=== PATIENT | female | born 1940 | race Caucasian/White ===

== ENCOUNTER 2019-11-09 10:47 | Inpatient (IN) ==
[2019-11-09] MEDS ORDERED: *HR* Dextrose 50 % in Water (Vial) 50 ML VIAL IVP PRN (11:07)
[2019-11-09] MEDS ORDERED: D5% in Water 1,000 ML IVC PRN (11:07)
[2019-11-09] MEDS ORDERED: Dextrose Gel 15 GM/37.5 ML TUBE PO PRN ×2 (11:07)
[2019-11-09] MEDS: Insulin LISPRO 300 UNITS/3 ML VIAL SQ SCH (18:05)
[2019-11-09] MEDS: Insulin NPH/REG 70/30 100 UNIT/ML (x5UNIT) SQ SCH (18:05)
[2019-11-09] MEDS: Melatonin 3 MG TABLET PO PRN (21:22)
[2019-11-10 07:10] LABS: Basophils % 0.1 %; Hematocrit 39.9 % (35.3-44.9); Hemoglobin 13.8 g/dL (11.5-15.4); Immature Granulocytes % 0.4 % (0-4); Lymphocytes # 1.7 K/mcL (0.6-4.6); Lymphocytes % 17.3 %; Mean Corpuscular HGB Conc 34.6 g/dL (31.6-35.5); Mean Corpuscular Hemoglobin 33.5 pg (28.0-33.3); Mean Corpuscular Volume 96.8 fL (83.0-100.0); Mean Platelet Volume 11.3 fL (9.4-12.4); Monocytes # 1.2 K/mcL (0.0-1.3); Monocytes % 12.3 %; Platelet Count 280 K/mcL (140-400); Red Blood Count 4.12 M/mcL (3.82-4.97); Red Cell Distribution Width 12.9 % (11.5-14.5); Segmented Neutrophils % 69.9 %
[2019-11-10 07:26] LABS: BUN/Creatinine Ratio 33 (6-26); Blood Urea Nitrogen 17 mg/dL (8-23); Carbon Dioxide 28 mEq/L (23-29); Chloride 102 mEq/L (98-107); Glucose 158 mg/dL (70-105); Osmolality,Calculated 297 (280-300); Potassium 3.1 mEq/L (3.5-5.1); Sodium 141 mEq/L (136-145); eGFR For African Americans > 60 (> 60); eGFR For Non-African Americans > 60 (> 60)
[2019-11-10] MEDS: *HR* Metformin 500 MG TABLET PO SCH (08:20)
[2019-11-10] MEDS: Aspirin 81 MG TAB.CHEW PO SCH (08:21)
[2019-11-10] MEDS: Insulin NPH/REG 70/30 100 UNIT/ML (x5UNIT) SQ SCH (08:21)
[2019-11-10] MEDS: Venlafaxine XR (24 HR) 37.5 MG CAP.ER.24H PO SCH (08:21)
[2019-11-10] MEDS: amLODIPine 5 MG TABLET PO SCH (08:21)
[2019-11-10] MEDS: *HR* Glimepiride 2 MG TABLET PO SCH (08:21)
[2019-11-10] MEDS: Insulin LISPRO 300 UNITS/3 ML VIAL SQ SCH ×3 (08:22→16:28)
[2019-11-10 08:57] LABS: Estimated Average Glucose 249 mg/dl
[2019-11-10] MEDS: Insulin DETEMIR 100 UNIT/ML X5UNITS SQ SCH (20:31)
[2019-11-11] MEDS: *HR* Metformin 500 MG TABLET PO SCH (08:21)
[2019-11-11] MEDS: amLODIPine 5 MG TABLET PO SCH (08:21)
[2019-11-11] MEDS: Aspirin 81 MG TAB.CHEW PO SCH (08:22)
[2019-11-11] MEDS: Venlafaxine XR (24 HR) 37.5 MG CAP.ER.24H PO SCH (08:22)
[2019-11-11] MEDS: *HR* Glimepiride 2 MG TABLET PO SCH (08:22)
[2019-11-11] MEDS: polyethylene glycoL 3350 17 GM POWD.PACK PO PRN (08:22)
[2019-11-11] MEDS: Insulin DETEMIR 100 UNIT/ML X5UNITS SQ SCH ×2 (08:22→20:47)
[2019-11-11] MEDS: Insulin LISPRO 300 UNITS/3 ML VIAL SQ SCH ×3 (08:27→16:39)
[2019-11-12] MEDS: Melatonin 3 MG TABLET PO PRN ×2 (00:18→22:09)
[2019-11-12] MEDS: *HR* Metformin 500 MG TABLET PO SCH (09:12)
[2019-11-12] MEDS: Aspirin 81 MG TAB.CHEW PO SCH (09:13)
[2019-11-12] MEDS: Venlafaxine XR (24 HR) 37.5 MG CAP.ER.24H PO SCH (09:13)
[2019-11-12] MEDS: Insulin DETEMIR 100 UNIT/ML X5UNITS SQ SCH ×2 (09:13→22:09)
[2019-11-12] MEDS: amLODIPine 5 MG TABLET PO SCH (09:13)
[2019-11-12] MEDS: *HR* Glimepiride 2 MG TABLET PO SCH (09:13)
[2019-11-12 10:06] LABS: Hematocrit 38.7 % (35.3-44.9); Mean Corpuscular HGB Conc 33.6 g/dL (31.6-35.5); Mean Corpuscular Hemoglobin 33.4 pg (28.0-33.3); Mean Corpuscular Volume 99.5 fL (83.0-100.0); Mean Platelet Volume 11.3 fL (9.4-12.4); Platelet Count 295 K/mcL (140-400); Red Blood Count 3.89 M/mcL (3.82-4.97); Red Cell Distribution Width 13.1 % (11.5-14.5); White Blood Count 11.4 K/mcL (4.3-11.1)
[2019-11-12] MEDS: Insulin LISPRO 300 UNITS/3 ML VIAL SQ SCH ×3 (10:53→16:34)
[2019-11-12 11:07] LABS: BUN/Creatinine Ratio 35 (6-26); Blood Urea Nitrogen 24 mg/dL (8-23); Calcium 8.6 mg/dL (8.6-10.3); Carbon Dioxide 29 mEq/L (23-29); Chloride 95 mEq/L (98-107); Glucose 551 mg/dL (70-105); Osmolality,Calculated 305 (280-300); Potassium 4.3 mEq/L (3.5-5.1); Sodium 133 mEq/L (136-145); eGFR For African Americans > 60 (> 60); eGFR For Non-African Americans > 60 (> 60)
[2019-11-12] MEDS: rOPINIRole 0.25 MG TABLET PO SCH (22:12)
[2019-11-13] MEDS: Insulin LISPRO 300 UNITS/3 ML VIAL SQ SCH ×3 (08:25→16:59)
[2019-11-13] MEDS: *HR* Metformin 500 MG TABLET PO SCH (08:25)
[2019-11-13] MEDS: Aspirin 81 MG TAB.CHEW PO SCH (08:26)
[2019-11-13] MEDS: Venlafaxine XR (24 HR) 37.5 MG CAP.ER.24H PO SCH (08:26)
[2019-11-13] MEDS: amLODIPine 5 MG TABLET PO SCH (08:26)
[2019-11-13] MEDS: *HR* Glimepiride 2 MG TABLET PO SCH (08:26)
[2019-11-13] MEDS: Insulin DETEMIR 100 UNIT/ML X5UNITS SQ SCH ×2 (08:26→20:50)
[2019-11-13 11:48] LABS: Hematocrit 35.8 % (35.3-44.9); Hemoglobin 12.1 g/dL (11.5-15.4); Mean Corpuscular HGB Conc 33.8 g/dL (31.6-35.5); Mean Corpuscular Hemoglobin 33.5 pg (28.0-33.3); Mean Corpuscular Volume 99.2 fL (83.0-100.0); Mean Platelet Volume 11.1 fL (9.4-12.4); Platelet Count 268 K/mcL (140-400); Red Blood Count 3.61 M/mcL (3.82-4.97); Red Cell Distribution Width 13.1 % (11.5-14.5); White Blood Count 11.8 K/mcL (4.3-11.1)
[2019-11-13 12:06] LABS: BUN/Creatinine Ratio 45 (6-26); Blood Urea Nitrogen 28 mg/dL (8-23); Calcium 8.4 mg/dL (8.6-10.3); Carbon Dioxide 28 mEq/L (23-29); Chloride 99 mEq/L (98-107); Glucose 336 mg/dL (70-105); Osmolality,Calculated 299 (280-300); Potassium 4.1 mEq/L (3.5-5.1); Sodium 135 mEq/L (136-145); eGFR For African Americans > 60 (> 60); eGFR For Non-African Americans > 60 (> 60)
[2019-11-13] MEDS: rOPINIRole 0.25 MG TABLET PO SCH (20:51)
[2019-11-13] MEDS: Melatonin 3 MG TABLET PO PRN (20:54)
[2019-11-14] MEDS: Insulin LISPRO 300 UNITS/3 ML VIAL SQ SCH ×3 (08:43→16:37)
[2019-11-14] MEDS: *HR* Glimepiride 2 MG TABLET PO SCH (08:44)
[2019-11-14] MEDS: Aspirin 81 MG TAB.CHEW PO SCH (08:44)
[2019-11-14] MEDS: Venlafaxine XR (24 HR) 37.5 MG CAP.ER.24H PO SCH (08:44)
[2019-11-14] MEDS: amLODIPine 5 MG TABLET PO SCH (08:44)
[2019-11-14] MEDS: Insulin DETEMIR 100 UNIT/ML X5UNITS SQ SCH ×2 (08:44→20:13)
[2019-11-14] MEDS: *HR* Metformin 500 MG TABLET PO SCH (08:44)
[2019-11-14] MEDS: Acetaminophen 325 MG TABLET PO PRN (20:12)
[2019-11-14] MEDS: Melatonin 3 MG TABLET PO PRN (22:49)
[2019-11-15] MEDS: Insulin LISPRO 300 UNITS/3 ML VIAL SQ SCH ×3 (07:55→16:53)
[2019-11-15] MEDS: *HR* Metformin 500 MG TABLET PO SCH (08:15)
[2019-11-15] MEDS: Venlafaxine XR (24 HR) 37.5 MG CAP.ER.24H PO SCH (08:15)
[2019-11-15] MEDS: *HR* Glimepiride 2 MG TABLET PO SCH (08:16)
[2019-11-15] MEDS: Aspirin 81 MG TAB.CHEW PO SCH (08:16)
[2019-11-15] MEDS: amLODIPine 5 MG TABLET PO SCH (08:16)
[2019-11-15] MEDS: Acetaminophen 325 MG TABLET PO PRN (08:22)
[2019-11-15] MEDS: Insulin DETEMIR 100 UNIT/ML X5UNITS SQ SCH ×2 (08:30→22:53)
[2019-11-15 11:17] LABS: Hemoglobin 11.6 g/dL (11.5-15.4); Mean Corpuscular HGB Conc 34.1 g/dL (31.6-35.5); Mean Corpuscular Hemoglobin 33.9 pg (28.0-33.3); Mean Corpuscular Volume 99.4 fL (83.0-100.0); Mean Platelet Volume 10.9 fL (9.4-12.4); Platelet Count 290 K/mcL (140-400); Red Blood Count 3.42 M/mcL (3.82-4.97); Red Cell Distribution Width 13.2 % (11.5-14.5); White Blood Count 11.4 K/mcL (4.3-11.1)
[2019-11-15 11:29] LABS: BUN/Creatinine Ratio 40 (6-26); Blood Urea Nitrogen 25 mg/dL (8-23); Carbon Dioxide 27 mEq/L (23-29); Chloride 98 mEq/L (98-107); Glucose 450 mg/dL (70-105); Osmolality,Calculated 302 (280-300); Potassium 4.1 mEq/L (3.5-5.1); Sodium 134 mEq/L (136-145); eGFR For African Americans > 60 (> 60); eGFR For Non-African Americans > 60 (> 60)
[2019-11-15] MEDS ORDERED: *HR* Metformin 500 MG TABLET PO SCH (17:00)
[2019-11-15 18:45] LABS: Bilirubin,Urine Negative (Negative); Blood,Urine Large (Negative); Color,Urine Yellow (Yellow); Glucose,Urine (UA) 500 mg/dL (Normal); Ketones,Urine Trace mg/dL (Negative); Leukocyte Esterase,Urine Negative (Negative); Nitrite,Urine Negative (Negative); Protein,Urine 100 mg/dL (Neg-Trace); Urobilinogen,Urine Normal (Normal)
[2019-11-15 18:51] LABS: Clarity,Urine Cloudy (Clear)
[2019-11-15 18:53] LABS: Bacteria,Urine Few per hpf (None-Few); RBC,Urine TNTC per hpf (0-3); Squamous Epithelial Cell,Urine Few per lpf (None-Few); Yeast,Urine Moderate per hpf (None Seen)
[2019-11-15] MEDS: rOPINIRole 0.25 MG TABLET PO SCH (22:45)
[2019-11-15] MEDS: Melatonin 3 MG TABLET PO PRN (22:45)
[2019-11-16] MEDS: Venlafaxine XR (24 HR) 37.5 MG CAP.ER.24H PO SCH (09:14)
[2019-11-16] MEDS: *HR* Metformin 500 MG TABLET PO SCH (09:15)
[2019-11-16] MEDS: amLODIPine 5 MG TABLET PO SCH (09:15)
[2019-11-16] MEDS: Insulin DETEMIR 100 UNIT/ML X5UNITS SQ SCH ×2 (09:16→22:06)
[2019-11-16] MEDS: Insulin LISPRO 300 UNITS/3 ML VIAL SQ SCH ×3 (09:16→16:27)
[2019-11-16] MEDS: *HR* Glimepiride 2 MG TABLET PO SCH (09:17)
[2019-11-16] MEDS: Aspirin 81 MG TAB.CHEW PO SCH (09:22)
[2019-11-16 11:18] LABS: Hematocrit 35.5 % (35.3-44.9); Hemoglobin 12.3 g/dL (11.5-15.4); Mean Corpuscular HGB Conc 34.6 g/dL (31.6-35.5); Mean Corpuscular Hemoglobin 33.9 pg (28.0-33.3); Mean Corpuscular Volume 97.8 fL (83.0-100.0); Mean Platelet Volume 10.7 fL (9.4-12.4); Platelet Count 342 K/mcL (140-400); Red Blood Count 3.63 M/mcL (3.82-4.97); White Blood Count 10.7 K/mcL (4.3-11.1)
[2019-11-16 11:32] LABS: BUN/Creatinine Ratio 31 (6-26); Blood Urea Nitrogen 23 mg/dL (8-23); Calcium 8.4 mg/dL (8.6-10.3); Carbon Dioxide 29 mEq/L (23-29); Chloride 98 mEq/L (98-107); Glucose 278 mg/dL (70-105); Osmolality,Calculated 292 (280-300); Sodium 134 mEq/L (136-145); eGFR For African Americans > 60 (> 60); eGFR For Non-African Americans > 60 (> 60)
[2019-11-16] MEDS: Acetaminophen 325 MG TABLET PO PRN (12:05)
[2019-11-16] MEDS: rOPINIRole 0.25 MG TABLET PO SCH (22:01)
[2019-11-16] MEDS: Melatonin 3 MG TABLET PO PRN (22:01)
[2019-11-17] MEDS: Acetaminophen 325 MG TABLET PO PRN ×2 (00:11→23:25)
[2019-11-17] MEDS: *HR* Glimepiride 2 MG TABLET PO SCH (08:44)
[2019-11-17] MEDS: Insulin LISPRO 300 UNITS/3 ML VIAL SQ SCH ×3 (08:44→16:39)
[2019-11-17] MEDS: Venlafaxine XR (24 HR) 37.5 MG CAP.ER.24H PO SCH (08:44)
[2019-11-17] MEDS: amLODIPine 5 MG TABLET PO SCH (08:44)
[2019-11-17] MEDS: *HR* Metformin 500 MG TABLET PO SCH (08:44)
[2019-11-17] MEDS: Insulin DETEMIR 100 UNIT/ML X5UNITS SQ SCH ×2 (08:45→20:15)
[2019-11-17] MEDS: Aspirin 81 MG TAB.CHEW PO SCH (08:45)
[2019-11-17] MEDS: polyethylene glycoL 3350 17 GM POWD.PACK PO PRN (20:15)
[2019-11-17] MEDS: rOPINIRole 0.25 MG TABLET PO SCH (20:15)
[2019-11-17] MEDS: Melatonin 3 MG TABLET PO PRN (23:25)
[2019-11-18] MEDS: Insulin LISPRO 300 UNITS/3 ML VIAL SQ SCH ×3 (07:51→17:23)
[2019-11-18] MEDS: Aspirin 81 MG TAB.CHEW PO SCH (08:01)
[2019-11-18] MEDS: amLODIPine 5 MG TABLET PO SCH (08:01)
[2019-11-18] MEDS: Venlafaxine XR (24 HR) 37.5 MG CAP.ER.24H PO SCH (08:01)
[2019-11-18] MEDS: *HR* Metformin 500 MG TABLET PO SCH (08:01)
[2019-11-18] MEDS: *HR* Glimepiride 2 MG TABLET PO SCH (08:02)
[2019-11-18] MEDS: polyethylene glycoL 3350 17 GM POWD.PACK PO PRN (08:03)
[2019-11-18] MEDS: Insulin DETEMIR 100 UNIT/ML X5UNITS SQ SCH ×2 (08:08→21:00)
[2019-11-18] MEDS: rOPINIRole 0.25 MG TABLET PO SCH (21:00)
[2019-11-18] MEDS: Acetaminophen 325 MG TABLET PO PRN (23:47)
[2019-11-18] MEDS: Melatonin 3 MG TABLET PO PRN (23:48)
[2019-11-19] MEDS: *HR* Metformin 500 MG TABLET PO SCH (08:05)
[2019-11-19] MEDS: amLODIPine 5 MG TABLET PO SCH (08:06)
[2019-11-19] MEDS: Aspirin 81 MG TAB.CHEW PO SCH (08:06)
[2019-11-19] MEDS: Venlafaxine XR (24 HR) 37.5 MG CAP.ER.24H PO SCH (08:06)
[2019-11-19] MEDS: *HR* Glimepiride 2 MG TABLET PO SCH (08:07)
[2019-11-19] MEDS: Insulin LISPRO 300 UNITS/3 ML VIAL SQ SCH ×3 (08:12→16:43)
[2019-11-19] MEDS: Insulin DETEMIR 100 UNIT/ML X5UNITS SQ SCH ×2 (08:50→21:01)
[2019-11-19] MEDS: cefTRIAXone 1,000 MG in 0.9 % Sodium Chloride Mini Bag 100 ML IVPB SCH (11:15)
[2019-11-19] MEDS: polyethylene glycoL 3350 17 GM POWD.PACK PO PRN (12:14)
[2019-11-19] MEDS: Acetaminophen 325 MG TABLET PO PRN ×2 (15:06→22:34)
[2019-11-19] MEDS: rOPINIRole 0.25 MG TABLET PO SCH (21:01)
[2019-11-19] MEDS: Melatonin 3 MG TABLET PO PRN (22:29)
[2019-11-20] MEDS: Venlafaxine XR (24 HR) 37.5 MG CAP.ER.24H PO SCH (08:55)
[2019-11-20] MEDS: Aspirin 81 MG TAB.CHEW PO SCH (08:55)
[2019-11-20] MEDS: *HR* Glimepiride 2 MG TABLET PO SCH (08:56)
[2019-11-20] MEDS: *HR* Metformin 500 MG TABLET PO SCH (08:56)
[2019-11-20] MEDS: amLODIPine 5 MG TABLET PO SCH (08:56)
[2019-11-20] MEDS: Insulin LISPRO 300 UNITS/3 ML VIAL SQ SCH ×3 (08:57→16:34)
[2019-11-20] MEDS: cefTRIAXone 1,000 MG in 0.9 % Sodium Chloride Mini Bag 100 ML IVPB SCH (08:58)
[2019-11-20] MEDS: Insulin DETEMIR 100 UNIT/ML X5UNITS SQ SCH ×2 (09:05→21:51)
[2019-11-20] MEDS ORDERED: Bisacodyl 10 MG RECTAL SUPPOSITORY RC PRN (10:57)
[2019-11-20] MEDS: Sennosides 8.6 MG TABLET PO SCH (11:51)
[2019-11-20] MEDS: Acetaminophen 325 MG TABLET PO PRN (14:48)
[2019-11-20] MEDS: rOPINIRole 0.25 MG TABLET PO SCH (21:47)
[2019-11-20] MEDS: Melatonin 3 MG TABLET PO PRN (21:48)
[2019-11-21] MEDS: polyethylene glycoL 3350 17 GM POWD.PACK PO PRN (08:42)
[2019-11-21] MEDS: Sennosides 8.6 MG TABLET PO SCH (08:45)
[2019-11-21] MEDS: Venlafaxine XR (24 HR) 37.5 MG CAP.ER.24H PO SCH (08:46)
[2019-11-21] MEDS: *HR* Glimepiride 2 MG TABLET PO SCH (08:46)
[2019-11-21] MEDS: amLODIPine 5 MG TABLET PO SCH (08:46)
[2019-11-21] MEDS: cefTRIAXone 1,000 MG in 0.9 % Sodium Chloride Mini Bag 100 ML IVPB SCH (08:47)
[2019-11-21] MEDS: *HR* Metformin 500 MG TABLET PO SCH (08:47)
[2019-11-21] MEDS: Aspirin 81 MG TAB.CHEW PO SCH (08:47)
[2019-11-21] MEDS: Insulin DETEMIR 100 UNIT/ML X5UNITS SQ SCH (08:49)
[2019-11-21] MEDS: Insulin LISPRO 300 UNITS/3 ML VIAL SQ SCH ×3 (08:50→16:41)
[2019-11-21] MEDS ORDERED: Lactulose Oral Soln 20 GM/30 ML UDC PO ONE (17:15)
[2019-11-21] MEDS ORDERED: Sennosides/Docusate Sodium TABLET PO STA (17:16)
[2019-11-21] MEDS: polyethylene glycoL 3350 17 GM POWD.PACK PO SCH (18:05)
[2019-11-21] MEDS: rOPINIRole 0.25 MG TABLET PO SCH (21:51)
[2019-11-21] MEDS: Melatonin 3 MG TABLET PO PRN (21:51)
[2019-11-22] MEDS: Acetaminophen 325 MG TABLET PO PRN ×3 (00:17→22:23)
[2019-11-22] MEDS: *HR* Metformin 500 MG TABLET PO SCH (08:11)
[2019-11-22] MEDS: Insulin LISPRO 300 UNITS/3 ML VIAL SQ SCH ×3 (08:11→16:48)
[2019-11-22] MEDS: Venlafaxine XR (24 HR) 37.5 MG CAP.ER.24H PO SCH (08:11)
[2019-11-22] MEDS: Aspirin 81 MG TAB.CHEW PO SCH (08:11)
[2019-11-22] MEDS: *HR* Glimepiride 2 MG TABLET PO SCH (08:11)
[2019-11-22] MEDS: amLODIPine 5 MG TABLET PO SCH (08:11)
[2019-11-22] MEDS: cefTRIAXone 1,000 MG in 0.9 % Sodium Chloride Mini Bag 100 ML IVPB SCH (08:31)
[2019-11-22] MEDS: polyethylene glycoL 3350 17 GM POWD.PACK PO SCH (08:31)
[2019-11-22] MEDS: Insulin DETEMIR 100 UNIT/ML X5UNITS SQ SCH (08:31)
[2019-11-22] MEDS: Sennosides 8.6 MG TABLET PO SCH (08:32)
[2019-11-22 10:03] LABS: Hematocrit 38.3 % (35.3-44.9); Hemoglobin 12.9 g/dL (11.5-15.4); Mean Corpuscular HGB Conc 33.7 g/dL (31.6-35.5); Mean Corpuscular Hemoglobin 33.9 pg (28.0-33.3); Mean Corpuscular Volume 100.5 fL (83.0-100.0); Platelet Count 438 K/mcL (140-400); Red Blood Count 3.81 M/mcL (3.82-4.97); Red Cell Distribution Width 13.3 % (11.5-14.5); White Blood Count 10.8 K/mcL (4.3-11.1)
[2019-11-22 10:16] LABS: BUN/Creatinine Ratio 35 (6-26); Blood Urea Nitrogen 26 mg/dL (8-23); Calcium 8.4 mg/dL (8.6-10.3); Carbon Dioxide 24 mEq/L (23-29); Chloride 94 mEq/L (98-107); Glucose 457 mg/dL (70-105); Osmolality,Calculated 299 (280-300); Potassium 4.2 mEq/L (3.5-5.1); Sodium 132 mEq/L (136-145); eGFR For African Americans > 60 (> 60); eGFR For Non-African Americans > 60 (> 60)
[2019-11-22] MEDS: Fluconazole 100 MG TABLET PO SCH (16:47)
[2019-11-22] MEDS: rOPINIRole 1 MG TABLET PO SCH (20:42)
[2019-11-22] MEDS ORDERED: Mirtazapine 15 MG TABLET PO SCH (21:00)
[2019-11-22] MEDS: Melatonin 3 MG TABLET PO PRN (22:20)
[2019-11-23] MEDS: Aspirin 81 MG TAB.CHEW PO SCH (08:25)
[2019-11-23] MEDS: Sennosides 8.6 MG TABLET PO SCH (08:25)
[2019-11-23] MEDS: *HR* Metformin 500 MG TABLET PO SCH (08:25)
[2019-11-23] MEDS: polyethylene glycoL 3350 17 GM POWD.PACK PO SCH (08:25)
[2019-11-23] MEDS: Venlafaxine XR (24 HR) 37.5 MG CAP.ER.24H PO SCH (08:25)
[2019-11-23] MEDS: amLODIPine 5 MG TABLET PO SCH (08:25)
[2019-11-23] MEDS: *HR* Glimepiride 2 MG TABLET PO SCH (08:25)
[2019-11-23] MEDS: cefTRIAXone 1,000 MG in 0.9 % Sodium Chloride Mini Bag 100 ML IVPB SCH (08:26)
[2019-11-23] MEDS: Fluconazole 100 MG TABLET PO SCH (08:26)
[2019-11-23] MEDS: Insulin DETEMIR 100 UNIT/ML X5UNITS SQ SCH (08:27)
[2019-11-23] MEDS: Insulin LISPRO 300 UNITS/3 ML VIAL SQ SCH ×3 (08:27→16:42)
[2019-11-23] MEDS ORDERED: Insulin DETEMIR 100 UNIT/ML X5UNITS SQ SCH (09:00)
[2019-11-23] MEDS: Mirtazapine 15 MG TABLET PO SCH (21:36)
[2019-11-23] MEDS: Acetaminophen 325 MG TABLET PO PRN (21:36)
[2019-11-23] MEDS: rOPINIRole 1 MG TABLET PO SCH (23:15)
[2019-11-23] MEDS: Melatonin 3 MG TABLET PO PRN (23:15)
[2019-11-24] MEDS: Sennosides 8.6 MG TABLET PO SCH (08:19)
[2019-11-24] MEDS: *HR* Metformin 500 MG TABLET PO SCH (08:19)
[2019-11-24] MEDS: amLODIPine 5 MG TABLET PO SCH (08:20)
[2019-11-24] MEDS: Fluconazole 100 MG TABLET PO SCH (08:23)
[2019-11-24] MEDS: Aspirin 81 MG TAB.CHEW PO SCH (08:23)
[2019-11-24] MEDS: Venlafaxine XR (24 HR) 37.5 MG CAP.ER.24H PO SCH (08:23)
[2019-11-24] MEDS: *HR* Glimepiride 2 MG TABLET PO SCH (08:23)
[2019-11-24] MEDS: polyethylene glycoL 3350 17 GM POWD.PACK PO SCH (08:24)
[2019-11-24] MEDS: Insulin DETEMIR 100 UNIT/ML X5UNITS SQ SCH (08:25)
[2019-11-24] MEDS: Insulin LISPRO 300 UNITS/3 ML VIAL SQ SCH ×3 (08:26→16:52)
[2019-11-24] MEDS: Cefdinir 300 MG CAPSULE PO SCH (20:17)
[2019-11-24] MEDS: Mirtazapine 15 MG TABLET PO SCH (20:18)
[2019-11-24] MEDS: Melatonin 3 MG TABLET PO PRN (22:31)
[2019-11-24] MEDS: rOPINIRole 1 MG TABLET PO SCH (22:31)
[2019-11-24] MEDS: Acetaminophen 325 MG TABLET PO PRN (22:32)
[2019-11-25] MEDS: *HR* Glimepiride 2 MG TABLET PO SCH (08:36)
[2019-11-25] MEDS: *HR* Metformin 500 MG TABLET PO SCH (08:37)
[2019-11-25] MEDS: Aspirin 81 MG TAB.CHEW PO SCH (08:38)
[2019-11-25] MEDS: Fluconazole 100 MG TABLET PO SCH (08:40)
[2019-11-25] MEDS: Venlafaxine XR (24 HR) 37.5 MG CAP.ER.24H PO SCH (08:41)
[2019-11-25] MEDS: polyethylene glycoL 3350 17 GM POWD.PACK PO SCH (08:44)
[2019-11-25] MEDS: Insulin DETEMIR 100 UNIT/ML X5UNITS SQ SCH (08:44)
[2019-11-25] MEDS: amLODIPine 5 MG TABLET PO SCH (08:45)
[2019-11-25] MEDS: Cefdinir 300 MG CAPSULE PO SCH ×2 (08:47→21:37)
[2019-11-25] MEDS: Sennosides 8.6 MG TABLET PO SCH (08:48)
[2019-11-25] MEDS: Insulin LISPRO 300 UNITS/3 ML VIAL SQ SCH ×3 (08:50→16:56)
[2019-11-25] MEDS: Acetaminophen 325 MG TABLET PO PRN (22:55)
[2019-11-25] MEDS: Mirtazapine 15 MG TABLET PO SCH (22:57)
[2019-11-25] MEDS: Melatonin 3 MG TABLET PO PRN (22:58)
[2019-11-25] MEDS: rOPINIRole 1 MG TABLET PO SCH (22:58)
[2019-11-26] MEDS: Venlafaxine XR (24 HR) 37.5 MG CAP.ER.24H PO SCH (07:51)
[2019-11-26] MEDS: *HR* Glimepiride 2 MG TABLET PO SCH (07:52)
[2019-11-26] MEDS: *HR* Metformin 500 MG TABLET PO SCH ×2 (07:52→16:55)
[2019-11-26] MEDS: amLODIPine 5 MG TABLET PO SCH (07:52)
[2019-11-26] MEDS: polyethylene glycoL 3350 17 GM POWD.PACK PO SCH (07:56)
[2019-11-26] MEDS: Insulin LISPRO 300 UNITS/3 ML VIAL SQ SCH ×3 (08:07→16:36)
[2019-11-26] MEDS: Insulin DETEMIR 100 UNIT/ML X5UNITS SQ SCH (08:11)
[2019-11-26] MEDS: Aspirin 81 MG TAB.CHEW PO SCH (09:14)
[2019-11-26] MEDS: Fluconazole 100 MG TABLET PO SCH (09:14)
[2019-11-26] MEDS: Sennosides 8.6 MG TABLET PO SCH (09:15)
[2019-11-26] MEDS: rOPINIRole 1 MG TABLET PO SCH (20:50)
[2019-11-26] MEDS: Mirtazapine 15 MG TABLET PO SCH (20:50)
[2019-11-26] MEDS ORDERED: Insulin DETEMIR 100 UNIT/ML X5UNITS SQ SCH (21:00)
[2019-11-26] MEDS: Acetaminophen 325 MG TABLET PO PRN (23:05)
[2019-11-26] MEDS: Melatonin 3 MG TABLET PO PRN (23:06)
[2019-11-27] MEDS: Insulin LISPRO 300 UNITS/3 ML VIAL SQ SCH ×3 (07:48→16:24)
[2019-11-27] MEDS: Aspirin 81 MG TAB.CHEW PO SCH (08:58)
[2019-11-27] MEDS: *HR* Metformin 500 MG TABLET PO SCH ×2 (08:59→16:31)
[2019-11-27] MEDS: Fluconazole 100 MG TABLET PO SCH (08:59)
[2019-11-27] MEDS: Venlafaxine XR (24 HR) 37.5 MG CAP.ER.24H PO SCH (08:59)
[2019-11-27] MEDS: amLODIPine 5 MG TABLET PO SCH (08:59)
[2019-11-27] MEDS: *HR* Glimepiride 2 MG TABLET PO SCH (08:59)
[2019-11-27] MEDS: Sennosides 8.6 MG TABLET PO SCH (08:59)
[2019-11-27] MEDS: polyethylene glycoL 3350 17 GM POWD.PACK PO SCH (09:07)
[2019-11-27] MEDS: Insulin DETEMIR 100 UNIT/ML X5UNITS SQ SCH ×2 (10:31→20:45)
[2019-11-27] MEDS: Mirtazapine 15 MG TABLET PO SCH (20:44)
[2019-11-27] MEDS: rOPINIRole 1 MG TABLET PO SCH (20:45)
[2019-11-27] MEDS: Melatonin 3 MG TABLET PO PRN (23:13)
[2019-11-27] MEDS: Acetaminophen 325 MG TABLET PO PRN (23:14)
[2019-11-28] MEDS: Insulin LISPRO 300 UNITS/3 ML VIAL SQ SCH ×3 (08:34→16:39)
[2019-11-28] MEDS: Venlafaxine XR (24 HR) 37.5 MG CAP.ER.24H PO SCH (08:53)
[2019-11-28] MEDS: Sennosides 8.6 MG TABLET PO SCH (08:53)
[2019-11-28] MEDS: *HR* Glimepiride 2 MG TABLET PO SCH (08:53)
[2019-11-28] MEDS: amLODIPine 5 MG TABLET PO SCH (08:53)
[2019-11-28] MEDS: Fluconazole 100 MG TABLET PO SCH (08:53)
[2019-11-28] MEDS: *HR* Metformin 500 MG TABLET PO SCH ×2 (08:53→16:43)
[2019-11-28] MEDS: Aspirin 81 MG TAB.CHEW PO SCH (08:54)
[2019-11-28] MEDS: polyethylene glycoL 3350 17 GM POWD.PACK PO SCH (08:54)
[2019-11-28] MEDS: Insulin DETEMIR 100 UNIT/ML X5UNITS SQ SCH ×2 (08:54→21:34)
[2019-11-28] MEDS ORDERED: Insulin LISPRO 300 UNITS/3 ML VIAL SQ SCH (17:00)
[2019-11-28] MEDS: Mirtazapine 15 MG TABLET PO SCH (21:33)
[2019-11-28] MEDS: Acetaminophen 325 MG TABLET PO PRN (22:43)
[2019-11-28] MEDS: Melatonin 3 MG TABLET PO PRN (22:44)
[2019-11-28] MEDS: rOPINIRole 1 MG TABLET PO SCH (22:44)
[2019-11-29 06:53] LABS: Hematocrit 33.9 % (35.3-44.9); Hemoglobin 11.4 g/dL (11.5-15.4); Mean Corpuscular HGB Conc 33.6 g/dL (31.6-35.5); Mean Corpuscular Hemoglobin 34.1 pg (28.0-33.3); Mean Corpuscular Volume 101.5 fL (83.0-100.0); Mean Platelet Volume 9.7 fL (9.4-12.4); Platelet Count 428 K/mcL (140-400); Red Blood Count 3.34 M/mcL (3.82-4.97); Red Cell Distribution Width 13.3 % (11.5-14.5); White Blood Count 6.9 K/mcL (4.3-11.1)
[2019-11-29 07:20] LABS: BUN/Creatinine Ratio 57 (6-26); Blood Urea Nitrogen 30 mg/dL (8-23); Calcium 8.4 mg/dL (8.6-10.3); Carbon Dioxide 27 mEq/L (23-29); Chloride 98 mEq/L (98-107); Glucose 287 mg/dL (70-105); Osmolality,Calculated 297 (280-300); Potassium 4.3 mEq/L (3.5-5.1); Sodium 135 mEq/L (136-145); eGFR For African Americans > 60 (> 60); eGFR For Non-African Americans > 60 (> 60)
[2019-11-29] MEDS: Fluconazole 100 MG TABLET PO SCH (08:20)
[2019-11-29] MEDS: *HR* Glimepiride 2 MG TABLET PO SCH (08:20)
[2019-11-29] MEDS: Venlafaxine XR (24 HR) 37.5 MG CAP.ER.24H PO SCH (08:21)
[2019-11-29] MEDS: *HR* Metformin 500 MG TABLET PO SCH ×2 (08:21→16:53)
[2019-11-29] MEDS: amLODIPine 5 MG TABLET PO SCH (08:21)
[2019-11-29] MEDS: Sennosides 8.6 MG TABLET PO SCH (08:22)
[2019-11-29] MEDS: Insulin LISPRO 300 UNITS/3 ML VIAL SQ SCH ×3 (08:22→16:54)
[2019-11-29] MEDS: polyethylene glycoL 3350 17 GM POWD.PACK PO SCH (08:22)
[2019-11-29] MEDS: Insulin DETEMIR 100 UNIT/ML X5UNITS SQ SCH ×2 (08:22→22:40)
[2019-11-29] MEDS: Aspirin 81 MG TAB.CHEW PO SCH (08:22)
[2019-11-29] MEDS: Melatonin 3 MG TABLET PO PRN (22:35)
[2019-11-29] MEDS: Acetaminophen 325 MG TABLET PO PRN (22:35)
[2019-11-29] MEDS: rOPINIRole 1 MG TABLET PO SCH (22:35)
[2019-11-29] MEDS: Mirtazapine 15 MG TABLET PO SCH (22:36)
[2019-11-30] MEDS: polyethylene glycoL 3350 17 GM POWD.PACK PO SCH (09:22)
[2019-11-30] MEDS: Fluconazole 100 MG TABLET PO SCH (09:24)
[2019-11-30] MEDS: Venlafaxine XR (24 HR) 37.5 MG CAP.ER.24H PO SCH (09:24)
[2019-11-30] MEDS: Aspirin 81 MG TAB.CHEW PO SCH (09:25)
[2019-11-30] MEDS: *HR* Metformin 500 MG TABLET PO SCH ×2 (09:25→17:27)
[2019-11-30] MEDS: amLODIPine 5 MG TABLET PO SCH (09:25)
[2019-11-30] MEDS: Sennosides 8.6 MG TABLET PO SCH (09:25)
[2019-11-30] MEDS: *HR* Glimepiride 2 MG TABLET PO SCH (09:25)
[2019-11-30] MEDS: Insulin DETEMIR 100 UNIT/ML X5UNITS SQ SCH ×2 (09:26→22:39)
[2019-11-30] MEDS: Insulin LISPRO 300 UNITS/3 ML VIAL SQ SCH ×4 (09:28→22:39)
[2019-11-30] MEDS: Melatonin 3 MG TABLET PO PRN (22:38)
[2019-11-30] MEDS: Mirtazapine 15 MG TABLET PO SCH (22:38)
[2019-11-30] MEDS: rOPINIRole 1 MG TABLET PO SCH (22:39)
[2019-11-30] MEDS: Acetaminophen 325 MG TABLET PO PRN (22:39)
[2019-12-01] MEDS: amLODIPine 5 MG TABLET PO SCH (08:11)
[2019-12-01] MEDS: Venlafaxine XR (24 HR) 37.5 MG CAP.ER.24H PO SCH (08:11)
[2019-12-01] MEDS: Fluconazole 100 MG TABLET PO SCH (08:12)
[2019-12-01] MEDS: Aspirin 81 MG TAB.CHEW PO SCH (08:12)
[2019-12-01] MEDS: Insulin LISPRO 300 UNITS/3 ML VIAL SQ SCH ×4 (08:22→20:37)
[2019-12-01] MEDS: Insulin DETEMIR 100 UNIT/ML X5UNITS SQ SCH ×2 (08:23→20:36)
[2019-12-01] MEDS: *HR* Metformin 500 MG TABLET PO SCH (08:26)
[2019-12-01] MEDS: Sennosides 8.6 MG TABLET PO SCH (08:27)
[2019-12-01] MEDS: polyethylene glycoL 3350 17 GM POWD.PACK PO SCH (08:27)
[2019-12-01] MEDS: Mirtazapine 15 MG TABLET PO SCH (20:36)
[2019-12-01] MEDS: rOPINIRole 1 MG TABLET PO SCH (20:36)
[2019-12-01] MEDS: Acetaminophen 325 MG TABLET PO PRN (22:48)
[2019-12-01] MEDS: Melatonin 3 MG TABLET PO PRN (22:49)
[2019-12-02] MEDS: polyethylene glycoL 3350 17 GM POWD.PACK PO SCH (07:50)
[2019-12-02] MEDS: amLODIPine 5 MG TABLET PO SCH (07:51)
[2019-12-02] MEDS: Venlafaxine XR (24 HR) 37.5 MG CAP.ER.24H PO SCH (07:51)
[2019-12-02] MEDS: Fluconazole 100 MG TABLET PO SCH (07:52)
[2019-12-02] MEDS: Aspirin 81 MG TAB.CHEW PO SCH (07:52)
[2019-12-02] MEDS: Sennosides 8.6 MG TABLET PO SCH (07:53)
[2019-12-02] MEDS: Insulin LISPRO 300 UNITS/3 ML VIAL SQ SCH ×4 (07:54→22:45)
[2019-12-02] MEDS: Insulin DETEMIR 100 UNIT/ML X5UNITS SQ SCH ×2 (08:31→20:26)
[2019-12-02] MEDS: Mirtazapine 15 MG TABLET PO SCH (20:27)
[2019-12-02] MEDS: rOPINIRole 1 MG TABLET PO SCH (22:49)
[2019-12-02] MEDS: Acetaminophen 325 MG TABLET PO PRN (22:50)
[2019-12-02] MEDS: Melatonin 3 MG TABLET PO PRN (22:50)
[2019-12-03 06:16] LABS: Hematocrit 33.2 % (35.3-44.9); Hemoglobin 11.3 g/dL (11.5-15.4); Mean Corpuscular Hemoglobin 33.6 pg (28.0-33.3); Mean Corpuscular Volume 98.8 fL (83.0-100.0); Mean Platelet Volume 9.7 fL (9.4-12.4); Platelet Count 414 K/mcL (140-400); Red Blood Count 3.36 M/mcL (3.82-4.97); Red Cell Distribution Width 12.8 % (11.5-14.5)
[2019-12-03 06:38] LABS: BUN/Creatinine Ratio 50 (6-26); Blood Urea Nitrogen 26 mg/dL (8-23); Calcium 8.3 mg/dL (8.6-10.3); Carbon Dioxide 27 mEq/L (23-29); Chloride 100 mEq/L (98-107); Glucose 269 mg/dL (70-105); Osmolality,Calculated 296 (280-300); Sodium 136 mEq/L (136-145); eGFR For African Americans > 60 (> 60); eGFR For Non-African Americans > 60 (> 60)
[2019-12-03] MEDS: Sennosides 8.6 MG TABLET PO SCH (07:48)
[2019-12-03] MEDS: polyethylene glycoL 3350 17 GM POWD.PACK PO SCH (07:48)
[2019-12-03] MEDS: Aspirin 81 MG TAB.CHEW PO SCH (07:49)
[2019-12-03] MEDS: amLODIPine 5 MG TABLET PO SCH (07:49)
[2019-12-03] MEDS: Venlafaxine XR (24 HR) 37.5 MG CAP.ER.24H PO SCH (07:49)
[2019-12-03] MEDS: Insulin LISPRO 300 UNITS/3 ML VIAL SQ SCH ×4 (07:52→20:39)
[2019-12-03] MEDS: Insulin DETEMIR 100 UNIT/ML X5UNITS SQ SCH ×2 (08:37→20:37)
[2019-12-03] MEDS: Mirtazapine 15 MG TABLET PO SCH (20:37)
[2019-12-03] MEDS: rOPINIRole 1 MG TABLET PO SCH (22:47)
[2019-12-03] MEDS: Melatonin 3 MG TABLET PO PRN (22:47)
[2019-12-03] MEDS: Acetaminophen 325 MG TABLET PO PRN (22:47)
[2019-12-04] MEDS: polyethylene glycoL 3350 17 GM POWD.PACK PO SCH (08:10)
[2019-12-04] MEDS: amLODIPine 5 MG TABLET PO SCH (08:11)
[2019-12-04] MEDS: Venlafaxine XR (24 HR) 37.5 MG CAP.ER.24H PO SCH (08:11)
[2019-12-04] MEDS: Aspirin 81 MG TAB.CHEW PO SCH (08:11)
[2019-12-04] MEDS: Insulin LISPRO 300 UNITS/3 ML VIAL SQ SCH ×4 (08:11→20:33)
[2019-12-04] MEDS: Sennosides 8.6 MG TABLET PO SCH (08:11)
[2019-12-04] MEDS: Insulin DETEMIR 100 UNIT/ML X5UNITS SQ SCH ×2 (08:42→20:32)
[2019-12-04] MEDS: Mirtazapine 15 MG TABLET PO SCH (20:31)
[2019-12-04] MEDS: rOPINIRole 1 MG TABLET PO SCH (22:40)
[2019-12-04] MEDS: Acetaminophen 325 MG TABLET PO PRN (22:40)
[2019-12-04] MEDS: Melatonin 3 MG TABLET PO PRN (22:41)
[2019-12-05] MEDS ORDERED: Insulin NPH/REG 70/30 100 UNIT/ML (x5UNIT) SQ SCH (09:00)
[2019-12-05] MEDS: *HR* Metformin 500 MG TABLET PO SCH ×2 (09:28→17:11)
[2019-12-05] MEDS: Venlafaxine XR (24 HR) 37.5 MG CAP.ER.24H PO SCH (09:28)
[2019-12-05] MEDS: Sennosides 8.6 MG TABLET PO SCH (09:28)
[2019-12-05] MEDS: polyethylene glycoL 3350 17 GM POWD.PACK PO SCH (09:28)
[2019-12-05] MEDS: Aspirin 81 MG TAB.CHEW PO SCH (09:28)
[2019-12-05] MEDS: amLODIPine 5 MG TABLET PO SCH (09:28)
[2019-12-05] MEDS ORDERED: Insulin LISPRO 300 UNITS/3 ML VIAL SQ ONE ×2 (11:43→11:49)
[2019-12-05] MEDS: Insulin LISPRO 300 UNITS/3 ML VIAL SQ SCH ×2 (13:51→17:10)
[2019-12-05] MEDS ORDERED: *HR* Metformin 500 MG TABLET PO SCH (17:00)
[2019-12-05] MEDS: Insulin NPH/REG 70/30 100 UNIT/ML (x5UNIT) SQ SCH (17:09)
[2019-12-05] MEDS: Mirtazapine 15 MG TABLET PO SCH (20:50)
[2019-12-05] MEDS: Acetaminophen 325 MG TABLET PO PRN (22:35)
[2019-12-05] MEDS: Melatonin 3 MG TABLET PO PRN (22:35)
[2019-12-05] MEDS: rOPINIRole 1 MG TABLET PO SCH (22:36)
[2019-12-06] MEDS: Insulin LISPRO 300 UNITS/3 ML VIAL SQ SCH ×4 (08:37→17:18)
[2019-12-06] MEDS: *HR* Metformin 500 MG TABLET PO SCH ×2 (08:41→17:19)
[2019-12-06] MEDS: *HR* Glimepiride 2 MG TABLET PO SCH (08:41)
[2019-12-06] MEDS: Insulin NPH/REG 70/30 100 UNIT/ML (x5UNIT) SQ SCH ×3 (08:42→17:25)
[2019-12-06] MEDS: Venlafaxine XR (24 HR) 37.5 MG CAP.ER.24H PO SCH (08:43)
[2019-12-06] MEDS: Aspirin 81 MG TAB.CHEW PO SCH (08:43)
[2019-12-06] MEDS: polyethylene glycoL 3350 17 GM POWD.PACK PO SCH (08:44)
[2019-12-06] MEDS: amLODIPine 5 MG TABLET PO SCH (08:44)
[2019-12-06] MEDS: Sennosides 8.6 MG TABLET PO SCH (08:45)
[2019-12-06] MEDS: Mirtazapine 15 MG TABLET PO SCH (20:59)
[2019-12-06] MEDS: rOPINIRole 1 MG TABLET PO SCH (21:00)
[2019-12-06] MEDS: Acetaminophen 325 MG TABLET PO PRN (22:32)
[2019-12-06] MEDS: Melatonin 3 MG TABLET PO PRN (22:33)
[2019-12-07 06:53] LABS: Hematocrit 34.5 % (35.3-44.9); Hemoglobin 11.6 g/dL (11.5-15.4); Mean Corpuscular HGB Conc 33.6 g/dL (31.6-35.5); Mean Corpuscular Hemoglobin 33.4 pg (28.0-33.3); Mean Corpuscular Volume 99.4 fL (83.0-100.0); Mean Platelet Volume 9.6 fL (9.4-12.4); Platelet Count 368 K/mcL (140-400); Red Blood Count 3.47 M/mcL (3.82-4.97); Red Cell Distribution Width 12.9 % (11.5-14.5); White Blood Count 4.9 K/mcL (4.3-11.1)
[2019-12-07 07:16] LABS: BUN/Creatinine Ratio 44 (6-26); Blood Urea Nitrogen 25 mg/dL (8-23); Calcium 8.5 mg/dL (8.6-10.3); Carbon Dioxide 29 mEq/L (23-29); Chloride 102 mEq/L (98-107); Glucose 222 mg/dL (70-105); Osmolality,Calculated 297 (280-300); Potassium 3.8 mEq/L (3.5-5.1); Sodium 138 mEq/L (136-145); eGFR For African Americans > 60 (> 60); eGFR For Non-African Americans > 60 (> 60)
[2019-12-07] MEDS: Sennosides 8.6 MG TABLET PO SCH (07:42)
[2019-12-07] MEDS: polyethylene glycoL 3350 17 GM POWD.PACK PO SCH (07:42)
[2019-12-07] MEDS: Aspirin 81 MG TAB.CHEW PO SCH (07:43)
[2019-12-07] MEDS: amLODIPine 5 MG TABLET PO SCH (07:43)
[2019-12-07] MEDS: *HR* Metformin 500 MG TABLET PO SCH ×2 (07:43→17:07)
[2019-12-07] MEDS: Insulin LISPRO 300 UNITS/3 ML VIAL SQ SCH ×3 (07:43→17:07)
[2019-12-07] MEDS: *HR* Glimepiride 2 MG TABLET PO SCH (07:43)
[2019-12-07] MEDS: Venlafaxine XR (24 HR) 37.5 MG CAP.ER.24H PO SCH (07:43)
[2019-12-07] MEDS: Insulin NPH/REG 70/30 100 UNIT/ML (x5UNIT) SQ SCH ×2 (08:11→17:12)
[2019-12-07] MEDS: Mirtazapine 15 MG TABLET PO SCH (21:34)
[2019-12-07] MEDS: Melatonin 3 MG TABLET PO PRN (23:07)
[2019-12-07] MEDS: rOPINIRole 1 MG TABLET PO SCH (23:07)
[2019-12-07] MEDS: Acetaminophen 325 MG TABLET PO PRN (23:07)
[2019-12-08] MEDS: amLODIPine 5 MG TABLET PO SCH (08:24)
[2019-12-08] MEDS: Venlafaxine XR (24 HR) 37.5 MG CAP.ER.24H PO SCH (08:24)
[2019-12-08] MEDS: Aspirin 81 MG TAB.CHEW PO SCH (08:25)
[2019-12-08] MEDS: Sennosides 8.6 MG TABLET PO SCH (08:25)
[2019-12-08] MEDS: *HR* Glimepiride 2 MG TABLET PO SCH (08:25)
[2019-12-08] MEDS: polyethylene glycoL 3350 17 GM POWD.PACK PO SCH (08:26)
[2019-12-08] MEDS: *HR* Metformin 500 MG TABLET PO SCH (08:27)
[2019-12-08] MEDS: Insulin NPH/REG 70/30 100 UNIT/ML (x5UNIT) SQ SCH (08:33)
[2019-12-08] MEDS: Insulin LISPRO 300 UNITS/3 ML VIAL SQ SCH ×2 (08:35→12:15)
[2019-12-08 10:04] VITALS: BP 152/74
== END 2019-12-08 13:05 | disposition home health service (06) | DRG 57 ==
LOC: INPPIK 12:15
PROVIDERS: ADMIT Family Medicine; ATTEND Family Medicine